=== PATIENT | male | born 1940 ===

== ENCOUNTER 2016-07-05 10:32 | Day surgery (SDC) | payer OTHER, MEDICAID ==
[2016-07-03 15:17] VITALS: BMI 28.3
[2016-07-05] MEDS ORDERED: Propofol 10 mg/ml Inj (20 ML) ONE (12:08)
[2016-07-05] MEDS ORDERED: cefTRIAXone IV 1 gm in Dextros 50 ML IVPB ONE (12:23)
[2016-07-05] MEDS ORDERED: Lidocaine 2% Jelly (Uro-Jet) ONE (12:24)
[2016-07-05] MEDS ORDERED: Lactated Ringer's 500 ML IV ONE ×2 (13:10)
[2016-07-05] MEDS ORDERED: HYDROmorphone 0.5 mg/0.5 ml ISec IVP PRN (13:33)
[2016-07-05] MEDS ORDERED: Acetaminophen-Codeine 300/30 mg Tab PO PRN (13:41)
[2016-07-05 14:04] VITALS: RESP 13; TEMP 98
[2016-07-05 14:18] VITALS: O2SAT 98
[2016-07-05 14:51] VITALS: BP 125/73; PULSE 71
--- NOTE | 2016-07-05 15:26 | OP ---
PROCEDURE DATE: 07/05/2016 PREOPERATIVE DIAGNOSES: Elevated PSA, voiding dysfunction, decreased flow of stream, nocturia. POSTOPERATIVE DIAGNOSES: Elevated PSA, voiding dysfunction, decreased flow of stream, nocturia. PROCEDURE: Ultrasound of the prostate and ultrasound-guided prostate biopsy. BLOOD LOSS: Less than 10 mL. SPECIMENS: Prostate cores. COMPLICATIONS: There were no complications. We did a total of 12 cores. Actually, we actually did 16 courses with some misfires just to get extr a tissue. The patient brought to the OR and placed on the table, routine monitors placed. Timeouts were called to confirm the patient and positioning. The patient was placed in decubitus position. We used a ____ 7.5 MHz probe. Took patient's ____ no specific hypoechoic lesions. Prostate volume measured to be about 40-50 cc. We now began our random biopsies ____ left base, left mid, left apex, right base, right mid, ____. W e did a total of 12 cores. There were a couple of misfires so in the end we actually did about 16 co res, but it is basically the 12 core standard biopsy ____. Postbiopsy rectal exam was normal and the patient tolerated this well without complication. Aguila Butler MD cc: [id number] TT: 07/05/2016 15:25:44 sn
--- NOTE | 2016-07-05 15:40 | HP ---
REASON FOR ADMISSION: Elevated PSA. INDICATIONS: A very pleasant 75-year-old gentleman who has voiding dysfunction, nocturia and an elev ated PSA. He is here today for a prostate ultrasound and biopsy. PAST MEDICAL AND SURGICAL HISTORY: As listed on the chart. No history of an CA or CVA. SOCIAL HISTORY: He is here with his . MEDICATIONS: See chart. ALLERGIES: None. REVIEW OF SYSTEMS: No weight loss, chest pain, shortness of breath, no constitutional complaints. PHYSICAL EXAMINATION: GENERAL: Well-nourished male, in no apparent distress. VITAL SIGNS: Normal. LUNGS: Clear. ABDOMEN: Overall soft. GENITOURINARY: Normal phallus. There are no testicular masses. RECTAL: Today, a 30 gram prostate, soft and smooth. No real specific nodules. LABORATORIES: See chart. DIAGNOSES: Elevated PSA, nocturia, voiding dysfunction, decreased flow of stream, obstructive and ir ritative complaints. IMPRESSION: We discussed options with the patient. He is a very pleasant 75-year-old gentleman. We discussed op tions here today for a prostate ultrasound and biopsy, and then further plans will follow depending o n what we find clinically. Risks, benefits of treatments discussed with the patient at length. PLAN: 1. Antibiotic prophylaxis. 2. Ultrasound of the prostate. 3. An ultrasound-guided biopsy. Further plans will follow. Aguila Butler MD cc: [id number] TT: 07/05/2016 15:39:48 an
== END 2016-07-05 14:35 | disposition home or self-care (01) ==
LOC: C.SDS 10:32
PROVIDERS: ATTEND Urology
DX: R97.20 Elevated prostate specific antigen [PSA] (principal); R35.1 Nocturia; R39.198 Other difficulties with micturition
CPT/HCPCS: 55700; 76872; 76942; 82948; 88305; 88342; J0696; J7120